=== PATIENT | male | born 1975 | race African-American/Black ===

== ENCOUNTER 2018-11-23 18:19 | Emergency (ER) | payer MEDICAID ==
[~2018-11-23] VITALS: Ht 185.4 cm; Wt 79.0 kg
[2018-11-23] MEDS ORDERED: IBUPROFEN 600MG TABLET PO ONE (21:30)
[2018-11-23 21:40] VITALS: BP 119/50
== END 2018-11-23 21:42 | disposition home or self-care (01) ==
LOC: ER 18:40
DX: S39.012A Strain of muscle, fascia and tendon of lower back, initial encounter (principal); S16.1XXA Strain of muscle, fascia and tendon at neck level, initial encounter; S46.911A Strain of unspecified muscle, fascia and tendon at shoulder and upper arm level, right arm, initial encounter; F17.200 Nicotine dependence, unspecified, uncomplicated; J45.909 Unspecified asthma, uncomplicated; V89.2XXA Person injured in unspecified motor-vehicle accident, traffic, initial encounter; Y93.89 Activity, other specified; Y92.89 Other specified places as the place of occurrence of the external cause; Y99.8 Other external cause status
CPT/HCPCS: 99283